=== PATIENT | female | born 1990 | race Caucasian/White ===

== ENCOUNTER 2016-09-11 16:01 | Inpatient (IN) | payer BC ==
--- NOTE | ~2016-09-11 | DS ---
Unit #: [id number] #: [id number] Patient: [facility]WKINS [id number] [facility] [address] [place] [address] [id number] I MR#: [id number] NAME: MELINDA DAWKINS. ROOM: P206 Age: 26 Sex: F Admission Date: 09/11/2016 : 1990 Discharge Date: 09/17/2016 Attending Physician: Ander Andrew M.D. Primary Care Physician: Primary Care Physician No DISCHARGE SUMMARY IDENTIFYING DATA Ms. Dawkins is a 26-year-old single white female, who is a resident of [place], [place], and was self-referred to the hospital. DISCHARGE DIAGNOSES Psychiatric: Opioid dependence, moderate and acute withdrawals; methamphetamine dependence, moderate; opioid-induced mood disorder. Medical: None. Stressors: Moderate psychosocial stressors. HISTORY OF PRESENT ILLNESS Please see initial psychiatric evaluation for details. PAST PSYCHIATRIC HISTORY Please see initial psychiatric evaluation for details. PAST MEDICAL HISTORY Please see initial psychiatric evaluation for details. HOSPITAL COURSE The patient was [facility] and was oriented to the hospital environment. Routine p.r.n. medications were initiated, and she was started back on her home medications and medications were adjusted and she was closely monitored. She was taking the medications regularly and was tolerating them fairly well and was able to come out of the detox without any complications and was willing to continue treatment on an outpatient basis and as such, it was decided that she will be discharged home and will continue treatment on an outpatient basis. DISCHARGE MEDICATIONS None. DISCHARGE CONDITION Stable. PROGNOSIS Fair. Dictated by... Ander Andrew M.D. IAA/modl Unit #: [id number] #: [id number] Patient: MELINDA DAWKINS TD: 09/18/2016 00:02 JOB #: [id number] DISCHARGE SUMMARY Page 1 of 1 X Ander Andrew MD DISCHARGE SUMMARY
--- NOTE | ~2016-09-11 | PN ---
Unit #: [id number] #: [id number] Patient: MELINDA LINDSAY [id number] [facility] [address] [place] [address] [id number] MR#: [id number] NAME: MELINDA LINDSAY ROOM: P206 Age: 26 Sex: F Admission Date: 09/11/2016 : 1990 Attending Physician: Ander Andrew M.D. Admitting Physician: Ander Andrew M.D. Primary Care Physician: Primary Care Physician Carey SANTANA NOTES DATE OF SERVICE: 09/12/2016 SUBJECTIVE Ms. Lindsay is a 26-year-old white female who was seen today and chart was reviewed, and case was discussed with the staff. She has been anxious, withdrawn, though has not shown any agitation or irritability, and has been cooperative with treatment recommendations as she has been taking the medications and tolerating them fairly well. MENTAL STATUS EXAMINATION Young white female who was casually dressed with fair personal hygiene, appears to be in no acute distress or discomfort. She was awake and alert on interaction with intact orientation. Her mood was anxious with a congruent affect. She denies any suicidal or homicidal ideation. Her insight and judgment remain slightly impaired. TREATMENT PLAN 1. We will continue on her current medications and treatment protocol. We will monitor her response to medications and make further adjustments as needed. 2. We will continue to follow up. Dictated by... Augustine Saleh/jorge luisl TD: 09/13/2016 03:39 JOB #: [id number] [facility] PROGRESS NOTES X Ander Andrew MD PROGRESS NOTE
--- NOTE | ~2016-09-11 | PN ---
Unit #: [id number] #: [id number] Patient: MELINDA LINDSAY [id number] [facility] [address] [place] [address] [id number] MR#: [id number] NAME: MELINDA LINDSAY ROOM: P206 Age: 26 Sex: F Admission Date: 09/11/2016 : 1990 Attending Physician: Ander Andrew M.D. Admitting Physician: Ander Andrew M.D. Primary Care Physician: Primary Care Physician Carey SANTANA NOTES DATE OF SERVICE: 09/15/2016 SUBJECTIVE Ms. Lindsay is a 26-year-old white female who was seen today and chart was reviewed and case was discussed with the staff. She has been anxious, withdrawn, seclusive to herself, though appears to be doing fairly well and has been coming out of the detox without any complications. MENTAL STATUS EXAMINATION Young white female who was casually dressed with fair personal hygiene, appears to be in no acute distress or discomfort. She was awake and alert with intact orientation. Her mood was anxious with a congruent affect. She denies any suicidal or homicidal ideations. Her insight and judgment remain slightly impaired. TREATMENT PLAN 1. We will continue her on her current treatment protocol. We will monitor her response and make further adjustments as needed. 2. We will continue to follow up. Dictated by... Augustine Saleh/jackelyn TD: 09/16/2016 19:44 JOB #: [id number] [facility] PROGRESS NOTES Page 1 of 1 X Ander Andrew MD PROGRESS NOTE
--- NOTE | ~2016-09-11 | PN ---
Unit #: [id number] #: [id number] Patient: MELINDA LINDSAY [id number] [facility] [address] [place] [address] [id number] I MR#: [id number] NAME: MELINDA LINDSAY ROOM: P206 Age: 26 Sex: F Admission Date: 09/11/2016 : 1990 Attending Physician: Ander Andrew M.D. Admitting Physician: Ander Andrew M.D. Primary Care Physician: Primary Care Physician Carey SANTANA NOTES DATE OF SERVICE: 09/13/2016 SUBJECTIVE Ms. Lindsay is a 26-year-old white female, who was seen today and chart was reviewed, and case was discussed with the staff. She has been anxious, withdrawn, though has not shown any agitation or irritability, and has been cooperative with treatment recommendations and has been taking the medications and tolerating them fairly well. MENTAL STATUS EXAMINATION Young white female, who was casually dressed with fair personal hygiene, appears to be in no acute distress or discomfort. She was awake and alert on interaction with intact orientation. Her mood was anxious with a congruent affect. She denies any suicidal or homicidal ideations, and also denies any auditory or visual hallucinations. Her insight and judgment remain slightly impaired. TREATMENT PLAN 1. We will continue her on her current medications and treatment protocol. We will monitor her response and make further adjustments as needed. 2. We will continue to follow up. Dictated by... Augustine Saleh/jackelyn TD: 09/14/2016 02:31 JOB #: [id number] [facility] PROGRESS NOTES X Ander Andrew MD PROGRESS NOTE
--- NOTE | ~2016-09-11 | HP ---
Unit #: [id number] #: [id number] Patient: MELINDA DAWKINS [id number] [place] [address] [id number] I MR#: [id number] NAME: MELINDA DAWKINS. ROOM: P206 Age: 26 Sex: F Admission Date: 09/11/2016 : 1990 Attending Physician: Ander Andrew M.D. Admitting Physician: Ander Andrew M.D. Primary Care Physician: Primary Care Physician No HISTORY AND PHYSICAL HISTORY OF PRESENT ILLNESS Melinda is a 26 year old, admitted to [address] [place] [address] because of her polysubstance abuse which includes IV heroin. PAST MEDICAL HISTORY Long history of illicit substance abuse to include IV heroin. PAST SURGICAL HISTORY Nothing reported. ALLERGIES No known drug allergies. SOCIAL HISTORY She smokes one pack per day. She denies alcohol and admits to long history of illicit substance abuse to include IV heroin and IV meth. FAMILY HISTORY Medically noncontributory. REVIEW OF SYSTEMS CONSTITUTIONAL: No fever or chills. HEENT: Denies any sore throat, ear pain or runny nose. CARDIOVASCULAR: Denies chest pain, irregular heart rhythm or palpitations. CHEST: Denies shortness of breath or cough. No hemoptysis. GASTROINTESTINAL: Denies nausea, vomiting, diarrhea or chronic constipation. ENDOCRINE: Denies history of increased thirst or urination. No recent significant weight loss or gain. GENITOURINARY: Denies dysuria, frequency, or hematuria. SKIN: Denies any rashes. HEMATOLOGIC: Denies history of increased bleeding or bruising. MUSCULOSKELETAL: Denies any hot, swollen joints. No generalized muscle pain. NEUROLOGIC: Denies problems with vision or speech. No frequent, severe headaches. No numbness, tingling or weakness in any extremities. Denies loss of bladder or bowel control. CURRENT MEDICATIONS Detox protocol. PHYSICAL EXAMINATION GENERAL: Alert, well-nourished, and no apparent distress. Unit #: [id number] #: [id number] Patient: MELINDA DAWKINS VITAL SIGNS: Blood pressure 122/88, heart rate 100, respirations 16, and temperature 98.6. WEIGHT: 180 pounds. HEIGHT: 5 feet 4 inches. SKIN: Warm and dry without rash or lesion. HEENT: Normocephalic. TMs not viewed. Oral and nasal passages clear. Conjunctivae clear. PERRLA. EOMs intact. NECK: Supple without lymphadenopathy or thyromegaly. HEART: Regular rate and rhythm without murmur. LUNGS: Clear. ABDOMEN: Soft, nontender. : Not done. EXTREMITIES: No evidence of cyanosis, clubbing or edema. Moves all without focal deficit. NEUROLOGICAL: Grossly within normal limits. Cranial Nerves: II: Visual khan are intact. III, IV AND : Extraocular movements are intact. Pupils are equal, round and reactive to light. V: Facial sensation is grossly normal. VII: Facial movements and expression are normal. VIII: Auditory acuity grossly intact. IX, X: Uvula is midline. Phonation is normal. XI: Patient shrugs shoulders and turns head normally. XII: Tongue protrudes in the midline. Sensory and Motor Function: Sensory and motor sensation is grossly normal. Motor: moves all extremities well. Coordination: Gait is normal. Deep Tendon Reflexes: Intact. IMPRESSION Psychiatric admission. RECOMMENDATIONS Psychiatric, per psychiatrist. MEDICAL I see no contraindications to participating in facility's activities. MEDICAL PROGNOSIS Good. MEDICAL CONDITION Stable. Dictated by... Lani HooverAMira. for Augustine Puga/te TD: 09/12/2016 13:15 JOB #: [id number] Unit #: [id number] #: [id number] Patient: MELINDA DAWKINS HISTORY AND PHYSICAL X Jaky Pierson X HISTORY AND PHYSICAL
--- NOTE | ~2016-09-11 | PA ---
Unit #: [id number] #: [id number] Patient: MELINDA DAWKINS [id number] [facility] [address] [place] [address] [id number] I MR#: [id number] NAME: MELINDA DAWKINS ROOM: P206 Age: 26 Sex: F Admission Date: 09/11/2016 : 1990 Date of Assessment: 09/11/2016 Attending Physician: Ander Andrew M.D. Admitting Physician: Ander Andrew M.D. Primary Care Physician: Primary Care Physician No PSYCHIATRIC ASSESSMENT DATE OF SERVICE 09/11/2016. IDENTIFYING DATA Ms. Dawkins is a 26-year-old single white female who is a resident of [place], [place] and was self-referred to the hospital on a voluntary basis and was accompanied by one of her friend. CHIEF COMPLAINT "I came to detox from heroin and meth." HISTORY OF PRESENT ILLNESS Ms. Dawkins is a 26-year-old white female who was self-referred to the hospital. Upon presentation, she stated that she needs to detox from heroin and meth and "I got turned away from [facility] due to insurance today and I want to return for outpatient. I want to complete my program there and then we would like to go to an outpatient [facility]. I'm using 0.5 g heroin IV daily, my last use was yesterday morning. I've been using IV meth 0.25 g daily, my last use was yesterday morning. I'm speedballing and no other drug use. I've been using for about 1 year both of them. I was using heroin for 2 years total." She does report increasing depression, anxiety, restlessness, irritability, feelings of hopelessness and helplessness, but denies any suicidal ideations, intent, or plan. SUBSTANCE ABUSE HISTORY The patient reports history of experimentation with crack cocaine, acid, opioids, and methamphetamine, and currently opioids and methamphetamine appears to be her drug of choice. PAST PSYCHIATRIC HISTORY The patient has had history of multiple chemical dependency treatments including being at [facility] and review of the medical records indicated currently she is not active in any treatment program, is not seeing a psychiatrist, and not taking any psychotropic medications. PAST MEDICAL HISTORY No acute or chronic medical illnesses. ALLERGIES No known medication allergies. CURRENT MEDICATIONS Unit #: [id number] #: [id number] Patient: MELINDA DAWKINS None. PERSONAL AND SOCIAL HISTORY A 26-year-old white female who reports that she is single, unemployed, and essentially homeless and has poor social support system. MENTAL STATUS EXAMINATION Young white female who was casually dressed with fair personal hygiene, appears to be in no acute distress or discomfort. She was awake and alert on interaction with intact orientation to time, place, and person. Her mood was anxious and depressed with a congruent affect. Her speech was slow and goal directed. She denies any suicidal or homicidal ideations, and also denies any auditory or visual hallucinations. Her insight and judgment remain significantly impaired. DIAGNOSTIC IMPRESSION Psychiatric: Opioid dependence, moderate and acute withdrawals; methamphetamine dependence, moderate; opioid-induced mood disorder. Medical: None. Stressors: Moderate psychosocial stressors. TREATMENT PLAN 1. The patient has presented with history of substance abuse and mood disorder, and has been decompensating and will need inpatient hospitalization for detoxification, and safety, and stabilization. We will start her on detox protocol. We will closely monitor for any worsening withdrawal symptoms. 2. Supportive therapy was provided to the patient. 3. Safe, structured, and nourishing environment will be provided. ESTIMATED LENGTH OF STAY 5 to 7 days. ABILITY TO HELP SELF Limited. WILLINGNESS TO HELP SELF The patient appears to be willing to help self. STRENGTHS 1. Communicative. 2. Cooperative. PROBLEMS 1. Chronic chemical dependency. 2. Chronic dysphoric symptoms. 3. Poor social support system. DISCHARGE CRITERIA This will be contingent upon the patient's ability to go through detox without having any significant withdrawal symptoms as well as her ability to stay safe to herself, particularly after discharge from the hospital. Dictated by... Ander Andrew M.D. IAA/modl Unit #: [id number] #: [id number] Patient: MELINDA DAWKINS TD: 09/12/2016 06:56 JOB #: [id number] PSYCHIATRIC ASSESSMENT X Ander Andrew MD PSYCHIATRIC ASSESSMENT
--- NOTE | ~2016-09-11 | PN ---
Unit #: [id number] #: [id number] Patient: MELINDA LINDSAY [id number] [facility] [address] [place] [address] [id number] I MR#: [id number] NAME: MELINDA LINDSAY ROOM: P206 Age: 26 Sex: F Admission Date: 09/11/2016 : 1990 Attending Physician: Ander Andrew M.D. Admitting Physician: Ander Andrew M.D. Primary Care Physician: Primary Care Physician Carey MOHAN PROGRESS NOTES DATE OF SERVICE 09/16/2016 DISCUSSION Ms. Lindsay is a 26-year-old white female who was seen today. Chart was reviewed and case was discussed with the staff. She has been anxious and withdrawn though has not shown any agitation and has been cooperative with the treatment recommendations. MENTAL STATUS EXAMINATION Young white female who is casually dressed with fair personal hygiene, appears to be in no acute distress or discomfort. The patient was awake and alert on interaction with intact orientation. His mood is anxious with a congruent affect. She denies any suicidal or homicidal ideations. Her insight and judgment remain slightly impaired. TREATMENT PLAN 1. We will continue her on her current medications and treatment protocol. We will monitor her response to the medications and make further adjustments as needed. 2. We will continue to follow up. Dictated by... Augustine Saleh/dariana TD: 09/17/2016 13:10 JOB #: [id number] [facility] PROGRESS NOTES Page 1 of 1 X Ander Andrew MD PROGRESS NOTE
--- NOTE | ~2016-09-11 | PN ---
Unit #: [id number] #: [id number] Patient: MELINDA LINDSAY [id number] [facility] [address] [place] [address] [id number] I MR#: [id number] NAME: MELINDA LINDSAY. ROOM: P206 Age: 26 Sex: F Admission Date: 09/11/2016 : 1990 Attending Physician: Ander Andrew M.D. Admitting Physician: Ander Andrew M.D. Primary Care Physician: Primary Care Physician Carey SANTANA NOTES DATE 09/14/2016 DISCUSSION Ms. Lindsay is a 26-year-old white female who was seen today and chart was reviewed and case was discussed with the staff. She has been anxious, withdrawn though has not shown any agitation, irritability or behavioral problems and has been cooperative with treatment recommendations. She has been taking the medications and tolerating them fairly well with no reported side effects. MENTAL STATUS EXAMINATION Young white female who was casually dressed with fair personal hygiene, appears to be in no acute distress or discomfort. She was awake and alert on interaction with intact orientation. Her mood was anxious with congruent affect. She denies any suicidal or homicidal ideations. Her insight and judgement remains slightly impaired. TREATMENT PLAN 1. We will continue her on her current medications and treatment protocol. We will monitor her response to the medication and make further adjustments as needed. 2. We will continue to follow up. Dictated by... Augustine Saleh/evens TD: 09/16/2016 02:14 JOB #: [id number] Unit #: [id number] #: [id number] Patient: MELINDA LINDSAY [facility] PROGRESS NOTES X Ander Andrew MD PROGRESS NOTE
[2016-09-12 10:15] LABS: BASOPHIL% 0.4 % (0-2.5); EOSINOPHIL# 0.1 X10e3 (0-0.7); EOSINOPHIL% 1.7 % (0.0-7.0); HEMATOCRIT 38.9 % (35.0-45.0); HEMOGLOBIN 12.9 gm/dL (12.0-16.0); LYMPHOCYTE% 32.6 % (17.0-45.0); MEAN CELL VOLUME 92.7 FL (83-96); MEAN CORPUSCULAR HEMOGLOBIN 30.8 PG (28-34); MEAN CORPUSCULAR HGB CONC 33.2 g/dL (30-36); MEAN PLATELET VOLUME 7.9 FL (6.5-11.5); MONOCYTE# 0.2 X10e3 (0-1.0); MONOCYTE% 3.9 % (3.0-12.0); NEUTROPHIL# 3.7 X10e3 (1.5-7.1); NEUTROPHIL% 61.4 % (40-75); PLATELET COUNT 223 X10e3 (140-420); RED CELL DISTRIBUTION WIDTH 12.8 % (11.0-15.5)
[2016-09-12 10:25] LABS: DIFF IND NO
[2016-09-12 10:40] LABS: THYROID STIMULATING HORMONE 0.5 uIU/ml (0.34-5.60)
[2016-09-12 10:49] LABS: FREE THYROXIN (T4) 0.89 ng/dL (0.58-1.64)
[2016-09-12 10:56] LABS: ALBUMIN SERUM 3.5 g/dL (3.5-5.0); ALKALINE PHOSPHATASE 64 U/L (32-92); ALT (SGPT) 21 U/L (10-40); AST (SGOT) 18 U/L (10-42); BILIRUBIN,TOTAL 0.8 mg/dL (0.2-2.0); BLOOD UREA NITROGEN 16 mg/dL (9-23); BUN/CREATININE RATIO 22.85; CALCIUM SERUM 9.2 mg/dL (8.4-10.2); CARBON DIOXIDE 27 mmol/L (22-31); CHLORIDE 105 mmol/L (100-111); CREATININE SERUM 0.7 mg/dL (0.6-1.4); GLOM FILT RATE Estimated ABOVE60 mL/min (>60); GLUCOSE FASTING 126 mg/dL (70-110); POTASSIUM 4.3 mmol/L (3.5-5.1); PROTEIN TOTAL SERUM 6.6 g/dL (6.0-8.3); SODIUM 141 mmol/L (135-145)
[2016-09-12 10:58] LABS: URINE APPEARANCE TURBID; URINE BILIRUBIN NEG (NEG); URINE BLOOD NEG (NEG); URINE COLOR YELLOW; URINE GLUCOSE NEG (NEG); URINE KETONE NEG (NEG); URINE LEUKOCYTE ESTERASE NEG (NEG); URINE NITRATE NEG (NEG); URINE PROTEIN NEG (NEG); URINE SPECIFIC GRAVITY 1.025 (1.003-1.035); URINE UROBILINOGEN 0.2 MG/DL (NEG)
[2016-09-12 11:18] LABS: AMPHETAMINE POS (NEG); BARBITURATES NEG (NEG); BENZODIAZEPINES NEG (NEG); COCAINE NEG (NEG); MARIJUANA NEG (NEG); OPIATES NEG (NEG); TRICYCLIC ANTIDEPRESSANTS NEG (NEG); U METHADONE NEG (NEG)
== END 2016-09-17 09:55 | DRG 897 ==
LOC: P2S 16:01
PROVIDERS: Psychiatry & Neurology Psychiatry
PROC: HZ2ZZZZ Detoxification Services for Substance Abuse Treatment (ICD-10-PCS; principal; 2016-09-11)
DX: F11.23 Opioid dependence with withdrawal (principal); F15.20 Other stimulant dependence, uncomplicated; F11.24 Opioid dependence with opioid-induced mood disorder; Z59.0 Homelessness; F17.210 Nicotine dependence, cigarettes, uncomplicated
CPT/HCPCS: 80053; 80307; 81003; 84439; 84443; 84703; 85025; 86592